=== PATIENT | female | born 1970 | race Caucasian/White ===

== ENCOUNTER 2019-04-06 07:12 | Emergency (ER) | payer SELFPAY ==
--- NOTE | 2019-04-06 07:58 | EDM.PDOC ---
ED HPI GENERAL MEDICAL PROBLEM - General Chief Complaint: ENT Problem Stated Complaint: FACE SWELLING/DENTAL COMPLAINT Time Seen by Provider: 04/06/19 07:39 Source of Information: Reports: Patient, RN Notes Reviewed - History of Present Illness INITIAL COMMENTS - FREE TEXT/NARRATIVE: 48-year-old female comes in with dental pain right upper canine for the last 2- 3 days and then this morning awakened with swelling localized to the right mid facial area. She's had no fever or chills. Tooth is cavitated and has had trouble with that off and on in the past. She does have a dental appointment for the next week or so. No eye pain or visual difficulty. She denies sore throat, difficulty breathing or swallowing. Right Upper Tooth/Teeth Pain Score (Numeric/FACES): 7 - Related Data Allergies Allergy/AdvReac Type Severity Reaction Status Date / Time ampicillin Allergy Diarrhea Verified 04/06/19 07:24 Home Meds: Home Meds Acetaminophen/HYDROcodone [[place] 325-5 MG] 1 tab PO Q6H PRN #14 tablet 04/06/19 [Rx] Clindamycin HCl 300 mg PO Q6HR #30 capsule 04/06/19 [Rx] Diet Supplement 1 cap PO DAILY 04/06/19 [History] Melatonin 10 mg PO BEDTIME PRN 04/06/19 [History] metroNIDAZOLE [Metronidazole] 1 applic TOP ASDIRECTED 04/06/19 [History] Past Medical History HEENT History: Reports: Impaired Vision Other HEENT History: wears eyeglasses. States has broken teeth. Cardiovascular History: Reports: IN, Other (See Below) Other Cardiovascular History: states may have had silent IN in past, not sure. Respiratory History: Reports: Asthma Gastrointestinal History: Reports: Irritable Bowel Syndrome [employer] History: Reports: Neurological History: Reports: Migraines Psychiatric History: Reports: Anxiety, Depression Hematologic History: Reports: Anemia, Iron Deficiency Dermatologic History: Reports: Eczema, Other (See Below) Other Dermatologic History: facial rash - Infectious Disease History Infectious Disease History: Reports: Chicken Pox - Past Surgical History HEENT Surgical History: Reports: Tonsillectomy Social & Family History - Tobacco Use Smoking Status *Q: Never Smoker Second Hand Smoke Exposure: No - Caffeine Use Caffeine Use: Reports: Coffee, Tea - Recreational Drug Use Recreational Drug Use: No ED ROS ENT - Review of Systems Review Of Systems: See Below Constitutional: Denies: Fever, Chills HEENT: Reports: Dental Pain Respiratory: Denies: Shortness of Breath Cardiovascular: Denies: Chest Pain GI/Abdominal: Denies: Abdominal Pain, Nausea, Vomiting Musculoskeletal: Denies: Neck Pain Skin: Denies: Rash Neurological: Denies: Headache, Trouble Speaking, Difficulty Walking ED EXAM, ENT - Physical Exam Exam: See Below General Appearance: Alert Mouth/Throat: Dental Tenderness, Other (tenderness R upper canine, no visible swelling or drainage). No: Pharyngeal Erythema, Tonsillar Swelling Head: Facial Swelling (very mild swelling R mid face including R lower eyelid, not tensely swollen, no palpable mass, minimal tenderness R maxilla) Neck: Supple, Full Range of Motion. No: Lymphadenopathy (L), Lymphadenopathy (R ) Respiratory/Chest: No Respiratory Distress, Lungs Clear, Normal Breath Sounds Cardiovascular: Regular Rate, Rhythm Skin: Warm, Dry Course - Vital Signs Last Recorded V/S: Last Vital Signs Temp 97.8 F 04/06/19 07:20 Pulse 68 04/06/19 08:33 Resp 16 04/06/19 08:33 BP 143/80 H 04/06/19 08:33 Pulse Ox 97 04/06/19 08:33 - Orders/Labs/Meds Meds: Medications Discontinued Medications Generic Name Dose Route Start Last Admin Trade Name Marylu PRN Reason Stop Dose Admin Clindamycin HCl 300 mg 04/06/19 08:27 04/06/19 08:31 Cleocin PO 04/06/19 08:28 300 mg ONETIME ONE Administration Departure - Departure Time of Disposition: 07:55 Disposition: Home, Self-Care 01 Condition: Fair Clinical Impression: Infected dental caries - Discharge Information Prescriptions: Clindamycin HCl 300 mg PO Q6HR #30 capsule Acetaminophen/HYDROcodone [[place] 325-5 MG] 1 tab PO Q6H PRN #14 tablet PRN Reason: Pain Referrals: [facility] [Primary Care Provider] - Forms: ED Department Discharge Additional Instructions: Clindamycin 300 mg 4 times daily for 1 week. Prescriptions [facility]. You may alternate tylenol and ibuprofen or aleve for mild to moderate pain or take hydrocodone if needed for severe pain. Do not take tylenol and hydrocodone at the same time. Do no drive or work when taking hydrocodone. See dentist next week for follow up. Call for appt. Return to ED as needed if symptoms worsening in any way. Sepsis Event Note - Evaluation Sepsis Screening Result: No Definite Risk - Focused Exam Date Exam was Performed: 04/07/19 Time Exam was Performed: 08:20
[2019-04-06] MEDS ORDERED: Clindamycin HCl 150 MG Cap PO ONE (08:27)
== END 2019-04-06 08:25 | disposition home or self-care (01) ==
LOC: JD.ED 07:12
DX: K04.7 Periapical abscess without sinus (principal); K02.9 Dental caries, unspecified; I25.2 Old myocardial infarction; Z88.0 Allergy status to penicillin
CPT/HCPCS: 99282; A9270